=== PATIENT | male | born 1995 | race African-American/Black ===

== ENCOUNTER 2016-11-05 23:42 | Emergency (ER) | payer MEDICAID, OTHER ==
[2016-11-05 23:43] VITALS: BP 108/67; PULSE 57; RESP 16; TEMP 98.5; O2SAT 98
== END 2016-11-06 00:10 | disposition left against medical advice (07) ==
LOC: NED 23:42
DX: R11.10 Vomiting, unspecified (principal); Z53.21 Procedure and treatment not carried out due to patient leaving prior to being seen by health care provider
CPT/HCPCS: 99281

== ENCOUNTER 2017-06-08 21:55 | Emergency (ER) | payer OTHER ==
[~2017-06-08] VITALS: Ht 175.3 cm; Wt 65.9 kg
[2017-06-08 22:01] VITALS: BP 109/46; PULSE 58; RESP 18; TEMP 97.5; O2SAT 98
[2017-06-08] MEDS ORDERED: ZOFR4TAB3 SL (22:28)
--- NOTE | 2017-06-08 22:28 | PD ---
HPI Chief Complaint: GI Complaint Time Seen by Provider: 22:09 Travel History International Travel<30 days: No Contact w/Intl Traveler<30days: No Traveled to known affect area: No History of Present Illness HPI This is a 21-year-old male who presents to the emergency department having had one episode of vomiting at work. He ate some uzbek fries and then had some ice cream and after that he vomited. The episode was isolated with no associated abdominal pain. He denies any fevers or chills. Currently he feels back to normal and the symptoms have subsided. They were mild. He denies any diarrhea. 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 [facility] Past Medical History Medical History: Denies Significant Hx Diminished Hearing: No Tetanus Vaccination: Unknown Past Surgical History Surgical History: No Previous Surgery Social History Alcohol Use: No Tobacco Use: Yes Substance Use: No Allergies-Medications (Allergen,Severity, Reaction): Coded Allergies: No Known Allergies (Unverified , 06/08/17) Reported Meds & Prescriptions Reported Meds & Active Scripts Active No Active Prescriptions or Reported Medications Review of Systems Except as stated in HPI: all other systems reviewed are Neg Physical Exam Narrative GENERAL:Well appearing, no acute distress SKIN: Focused skin assessment warm and dry. HEAD: Atraumatic. Normocephalic. EYES: Pupils equal and round. No injection or drainage. ENT: Moist mucous membranes NECK: Trachea midline. CARDIOVASCULAR: Regular rate and rhythm. No murmur appreciated. RESPIRATORY: Clear to auscultation. Breath sounds equal bilaterally. GASTROINTESTINAL: Abdomen soft, non-tender, nondistended. MUSCULOSKELETAL: No obvious deformities. NEUROLOGICAL: Awake and alert. No obvious cranial nerve deficits. Moving all extremities. PSYCHIATRIC: Appropriate mood and affect; insight and judgment normal. Data Data Last Documented VS Vital Signs Date Time Temp Pulse Resp B/P (MAP) Pulse Ox O2 Delivery O2 Flow Rate FiO2 06/08/17 22:01 97.5 58 18 109/46 (67) 98 Orders Orders Ondansetron Odt (Zofran Odt) (06/08/17 22:30) Acetaminophen (Tylenol) (06/08/17 22:30) MDM Medical Decision Making Medical Screen Exam Complete: Yes Emergency Medical Condition: Yes Differential Diagnosis Gastroenteritis, appendicitis, colitis, food poisoning Narrative Course This is a 21-year-old male who presents to the emergency department with 1 episode of vomiting right after eating. Currently he feels fine and back to normal. He is afebrile and has a benign exam. He's had no other concrete symptoms. I think he is safe for discharge and I don't think he requires any additional testing. Diagnosis Primary Impression: Vomiting Qualified Codes: R11.11 - Vomiting without nausea Patient Instructions: General Instructions Departure Forms: Tests/Procedures, Work Release Enter return to work date: Jun 09, 2017 Additional Instructions: If you develop severe or worsening abdominal pain, fever>100.4, persistent vomiting or inability to eat or drink return to the emergency department immediately. Follow up with your primary care physician in 1-2 days for a check-up. Med/Other Pt SpecificInfo: Prescription(s) given Scripts Ondansetron Odt (Zofran Odt) 4 Mg Tab 4 MG SL Q6HR Y for Nausea/Vomiting, #10 TAB 0 Refills Prov: Hortencia Prado MD 06/08/17 Disposition: 01 DISCHARGE HOME Condition: Stable Hortencia Prado MD Jun 08, 2017 22:28
[2017-06-08] MEDS ORDERED: ONDANSETRON ODT 4 MG TAB PO ONE (22:30)
[2017-06-08] MEDS ORDERED: ACETAMINOPHEN 500 MG CPLT PO ONE (22:30)
== END 2017-06-08 22:39 | disposition home or self-care (01) ==
LOC: PHED 21:55
DX: R11.10 Vomiting, unspecified (principal); Z72.0 Tobacco use
CPT/HCPCS: 99283